=== PATIENT | male | born 1985 | race Caucasian/White ===

== ENCOUNTER 2018-05-22 08:46 | Outpatient (CLI) | payer BC ==
--- NOTE | 2018-05-22 11:08 | ULT ---
TESTICULAR DOPPLER WITH ULTRASOUND: HISTORY: Left testicular mass. COMPARISON: None. TECHNIQUE: Hutton scale, color flow, Doppler imaging, and spectral waveform analysis is performed of the left and right testicle. FINDINGS: RIGHT HEMISCROTUM: The right testicle has a homogeneous echotexture. No intratesticular mass. The right testicle measu res 3.9 x 4.9 x 2.6 cm. The right epididymis has a normal echotexture, measuring 2.1 x 1.0 cm. No significant fluid. LEFT HEMISCROTUM: The left testicle has a homogeneous echotexture. The left testicle measures 4.9 x 2.5 x 3.2 cm. The re is an anechoic focus in the left epididymis measuring 0.4 x 0.8 x 1.8 cm, compatible with epididym al cyst. Overall, the left epididymis measures 1.7 x 1.0 cm. A trace amount of fluid in the left he miscrotum. TESTICULAR DOPPLER: Symmetric vascular flow to the left and right testicles. IMPRESSION: Small left epididymal cyst. POS: OFF
== END 2018-05-22 08:47 | disposition home or self-care (01) ==
LOC: BICULT 08:46
PROVIDERS: ATTEND Specialist
DX: N50.89 Other specified disorders of the male genital organs (principal); N50.3 Cyst of epididymis
CPT/HCPCS: 76870; 93976